=== PATIENT | female | born 1985 | race Caucasian/White ===

== ENCOUNTER 2018-11-30 09:24 | Emergency (ER) | payer BC ==
--- OUTSIDE RECORDS SUMMARY | 2018-11-30 09:28 | XMS REPORT ---
:1985 [facility] Address [address] [place] [address] Dr. Rockwell [address] [place] [address] Care Team Providers Name Role Phone HOUSTON SHAH Unavailable Unavailable Problems This patient has no known problems. Allergies, Adverse Reactions, Alerts This patient has no known allergies or adverse reactions. Medications This patient has no known medications. Results Test Description Test Time Test Comments Text Results Atomic Results Result Comments TISSUE EXAM 2018-02-23 07:48:00 Surgical Pathology Report Case: [id number] Authorizing Provider: [place] Shah MD Collected: 02/21/2018 1038 Ordering Location: [facility] ENDOSCOPY Received: 02/21/2018 1509 SERVICES Pathologist: Mirna Michael MD Specimens: A) - Ileum, Terminal B) - Colon Biopsy, Random A. TERMINAL ILEUM, BIOPSY: - ILEAL MUCOSA WITH PRESERVED VILLOUS ARCHITECTURE. NO SIGNIFICANT HISTOPATHOLOGICAL CHANGE B. 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 - [id number] and diarrhea A. Terminal ileum biopsy. B. Random colon biopsy Specimen is received in two containers of formalin both labeled with the patient's information.Specimen A: Labeled "terminal ileum biopsy" consists of two fragments of briones tissue measuring 0.1 and 0.4 cm, submitted in A1.Specimen B: Labeled "random colon biopsy" consists of multiple fragments of briones tissue ranging from 0.1 to 0.5 cm, submitted in B1. CG/ew Performed
--- OUTSIDE RECORDS SUMMARY | 2018-11-30 09:28 | XMS REPORT | Clinical Summary ---
:1985 Author Organization [facility] Address [address] [place] [address] Care Team Providers Name Role Phone Devante Copeland DO Primary Care Provider Allergies No Known Allergies Medications No known medications Active Problems Not on file Encounters Date Type Specialty Care Team Description 02/21/2018 Anesthesia Event Silvia Perez MD 02/21/2018 Surgery [place] Altamirano COLONOSCOPY,BIOPSY MD Stephon 02/21/2018 Hospital Encounter [place] Altamirano MD 02/17/2018 Hospital Encounter Pre-Admission Resource, Oqmt Testing Preadmit Phone after 11/29/2017 Social History Tobacco Use Types Packs/Day Years Used Date Never Smoker Smokeless Tobacco: Never Used Alcohol Use Drinks/Week oz/Week Comments Yes 4 Glasses of wine 2.4 Sex Assigned at Date Recorded Not on file Job Start Date Occupation Industry Not on file Not on file Not on file Travel History Travel Start Travel End No recent travel history available. Last Filed Vital Signs Vital Sign Reading Time Taken Blood Pressure 111/60 02/21/2018 11:20 AM CDT Pulse 45 02/21/2018 11:20 AM CDT Temperature 36.6 C (97.8 F) 02/21/2018 10:50 AM CDT Respiratory Rate 15 02/21/2018 11:20 AM CDT Oxygen Saturation 100% 02/21/2018 11:00 AM CDT Inhaled Oxygen Concentration - - Weight 54 kg (119 lb) 02/21/2018 10:17 AM CDT Height 162.6 cm (5' 4") 02/21/2018 10:17 AM CDT Body Mass Index 20.43 02/21/2018 10:17 AM CDT Plan of Treatment Not on file Procedures Procedure Name Priority Date/Time Associated Diagnosis Comments REPORT OF 02/21/2018 10:47 PROCEDURE - AM CDT ENDOSCOPY URL TISSUE EXAM AP Routine 02/21/2018 10:38 Results for this AM CDT procedure are in the results section. COLONOSCOPY,BIOPSY 02/21/2018 10:30 Constipation, AM CDT unspecified constipation type Diarrhea, unspecified type Hematochezia POCT , Routine 02/21/2018 10:15 Results for this URINE AM CDT procedure are in the results section. after 11/29/2017 Results REPORT OF PROCEDURE - ENDOSCOPY URL (02/21/2018 10:47 AM CDT) Narrative Performed At Tissue Exam (02/21/2018 10:38 AM CDT) Case Report Surgical Pathology Report Case: [id number] [facility] Authorizing Provider:[place] Altamirano MD Collected: 02/21/2018 1038 [facility] Ordering Location: [facility] ENDOSCOPY Received: 02/21/2018 1509 SERVICES Pathologist: Mirna Michael MD Specimens: A) - Ileum, Terminal B) - Colon Biopsy, Random DIAGNOSIS A. TERMINAL ILEUM, BIOPSY: [facility] - ILEAL MUCOSA WITH PRESERVED VILLOUS ARCHITECTURE. NO SIGNIFICANT HISTOPATHOLOGICAL [facility] CHANGE B. 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 - [facility] CPT Code(s) 33219 x2 [facility] CLINICAL HISTORY Constipation and diarrhea [facility] SPECIMEN SOURCE A. Terminal ileum biopsy. B. [facility] Random colon biopsy [facility] GROSS DESCRIPTION Specimen is received in two containers of formalin both labeled with the patient's information. [facility] Specimen A: Labeled "terminal ileum biopsy" consists of two fragments of briones tissue measuring 0.1 and 0.4 cm, submitted in A1. Specimen B: Labeled "random colon biopsy" consists of multiple fragments of briones tissue ranging from 0.1 to 0.5 cm, submitted in B1. CG/ew MICROSCOPIC DESCRIPTION Performed [facility] Specimen Tissue - Ileum, Terminal Performing Organization Address City/State/Zipcode Phone Number [facility] [address] [place] [address] CENTER POCT , urine (02/21/2018 10:15 AM CDT) Test Urine, POC Negative Control line present?, POC Yes Background clear?, POC Yes UPT Cassette Lot #, POC [id number] UPT Cassette Expiration Date, POC 08/03/2019 Specimen Urine after 11/29/2017 Insurance Payer Benefit Plan / Subscriber ID Type Phone Address Group BLUE CROSS/BLUE BCBS PPO POS EPO xxxxxxxxxxxx PPO [phone] [address] [place] [address]
[2018-11-30 10:34] LABS: Urine Blood 1+ (NEG); Urine Glucose NEGATIVE (NEG); Urine Protein NEGATIVE (NEG)
[2018-11-30] MEDS ORDERED: NA CHLORIDE 0.9% 1,000 ML ONE (10:38)
[2018-11-30] MEDS ORDERED: FAMOTIDINE 20 MG/2 ML VIAL IV ONE (10:38)
[2018-11-30 11:12] LABS: ALT/SGPT 17 U/L (12-78); AST/SGOT 24 U/L (15-37); Albumin 3.7 g/dL (3.4-5.0); Alkaline Phosphatase 81 U/L (45-117); BUN Blood Urea Nitrogen 10 mg/dL (7-18); Bicarbonate 25 mmol/L (21-32); Bilirubin Direct < 0.1 mg/dL (0-0.2); Bilirubin Total 0.3 mg/dL (0.2-1.0); Glucose Level 90 mg/dL (74-106); Lipase 92 U/L (73-393); Potassium 4.6 mmol/L (3.5-5.1); Protein, Total 7.8 g/dL (6.4-8.2); Sodium Level 139 mmol/L (136-145)
[2018-11-30 11:36] LABS: Absolute Lymphocytes (CBC) 1.3 K/uL (0.7-4.9); Absolute Monocytes 0.5 K/uL (0.1-1.3); Absolute Neutrophil 6.7 K/uL (1.8-8.0); Basophils % 0.5 % (0-1.3); Eosinophils % 0.2 % (0-4.4); Hematocrit 36.4 % (36.0-45.0); Lymphocytes % 15.2 % (15.3-44.8); MPV 9.6 fL (7.6-11.3); Monocytes % 5.7 % (3.3-12.3); RBC Red Blood Cell Count 3.72 M/uL (3.86-4.86)
--- NOTE | 2018-11-30 11:54 | RAD REPORT ---
EXAM DESCRIPTION: CT - Abdomen Pelvis W Contrast - 11/30/2018 11:39 am CLINICAL HISTORY: Abdominal pain/diarrhea COMPARISON: none. TECHNIQUE: Computed axial tomography of the abdomen pelvis was obtained. 100 cc Isovue-300 was admin istered intravenously. Oral contrast was not requested which limits evaluation of bowel. All CT scans are performed using dose optimization technique as appropriate and may include automated exposure control or mA/KV adjustment according to patient size. FINDINGS: The liver, spleen, pancreas, adrenal and kidneys appear unremarkable. There is no evidence of diverticulitis. A moderate amount stool is present throughout the colon. The appendix is not clearly seen. An adnexal mass is not displayed IMPRESSION: Moderate amount of stool throughout the colon
--- NOTE | 2018-11-30 12:56 | EDPHYS ---
Physician Documentation [facility] Name: Doni Ramires Age: 33 yrs Sex: Female : 1985 Arrival Date: 11/30/2018 Time: 09:28 Bed 20 Private MD: Min [facility] ED Physician Brandon Hahn HPI: 11/30 10:23 This 33 yrs old Female presents to ER via Ambulatory with complaints of kdr Fainting, Abdominal Pain. 10:23 The patient has been feeling poorly for the past week or so with nausea, abdominal pain kdr and cramping, looser than usual stools which are dark but not bloody or tar like.. Onset: The symptoms/episode began/occurred gradually, 1 week(s) ago. Severity of symptoms: At their worst the symptoms were mild moderate today, in the emergency department the symptoms are unchanged. The patient has experienced similar episodes in the past, a few times. The patient has not recently seen a physician. The patient had a nine day hospitalization in [place] several years ago for similar presentations though at this time she is not having bloody stools then. GOLD MARKER: 13:22 LMP N/A - . tw2 Historical: - Allergies: 09:46 No Known Allergies; ss - PMHx: 09:46 "GI issues"; ss - PSHx: 09:46 knee repair; ss - Immunization history:: Adult Immunizations up to date. - Social history:: Smoking status: Patient/guardian denies using tobacco. - Ebola Screening: : Patient denies travel to an Ebola-affected area in the 21 days before illness onset. ROS: 10:23 Constitutional: Negative for fever, chills, and weight loss, Eyes: Negative for injury, kdr pain, redness, and discharge, Neck: Negative for injury, pain, and swelling, Cardiovascular: Negative for chest pain, palpitations, and edema, Respiratory: Negative for shortness of breath, cough, wheezing, and pleuritic chest pain, Back: Negative for injury and pain, : Negative for injury, bleeding, discharge, and swelling, MS/Extremity: Negative for injury and deformity, Skin: Negative for injury, rash, and discoloration, Neuro: Negative for headache, weakness, numbness, tingling, and seizure activity. Psych: Negative for depression, anxiety, suicide ideation, homicidal ideation, and hallucinations, Allergy/Immunology: Negative for hives, rash, and allergies, Endocrine: Negative for neck swelling, polydipsia, polyuria, polyphagia, and marked weight changes, Hematologic/Lymphatic: Negative for swollen nodes, abnormal bleeding, and unusual bruising. 10:23 Abdomen/GI: Positive for abdominal pain, nausea, diarrhea, abdominal cramps, Negative for vomiting, constipation, abdominal distension, black/tarry stool, rectal pain, rectal bleeding, bowel incontinence. Exam: 10:23 Constitutional: This is a well developed, well nourished patient who is awake, alert, kdr and in no acute distress. Head/Face: Normocephalic, atraumatic. Eyes: Pupils equal round and reactive to light, extra-ocular motions intact. Lids and lashes normal. Conjunctiva and sclera are non-icteric and not injected. Cornea within normal limits. Periorbital areas with no swelling, redness, or edema. Neck: Trachea midline, no thyromegaly or masses palpated, and no cervical lymphadenopathy. Supple, full range of motion without nuchal rigidity, or vertebral point tenderness. No Meningismus. Chest/axilla: Normal chest wall appearance and motion. Nontender with no deformity. No lesions are appreciated. Cardiovascular: Regular rate and rhythm with a normal S1 and S2. No gallops, murmurs, or rubs. Normal PMI, no JVD. No pulse deficits. Respiratory: Lungs have equal breath sounds bilaterally, clear to auscultation and percussion. No rales, rhonchi or wheezes noted. No increased work of breathing, no retractions or nasal flaring. Back: No spinal tenderness. No costovertebral tenderness. Full range of motion. Skin: Warm, dry with normal turgor. Normal color with no rashes, no lesions, and no evidence of cellulitis. MS/ Extremity: Pulses equal, no cyanosis. Neurovascular intact. Full, normal range of motion. Neuro: Awake and alert, GCS 15, oriented to person, place, time, and situation. Cranial nerves II-XII grossly intact. Motor strength 5/5 in all extremities. Sensory grossly intact. Cerebellar exam normal. Normal gait. Psych: Awake, alert, with orientation to person, place and time. Behavior, mood, and affect are within normal limits. 10:23 Abdomen/GI: Inspection: abdomen appears normal, Bowel sounds: active, all quadrants, Palpation: soft, mild abdominal tenderness, in the left upper quadrant and left lower quadrant, mass, is not appreciated, rebound tenderness, is not appreciated, voluntary guarding, is not appreciated, involuntary guarding, is not appreciated. Vital Signs: 09:46 Resp 15; Weight 54.43 kg; Height 5 ft. 4 in. (162.56 cm); Pain 4/10; ss 09:48 Temp 97.3(TE); ss 09:59 BP 114 / 67; Pulse 62; Pulse Ox 100% on R/A; tw2 10:38 BP 105 / 64 Supine; Pulse 56; tw2 10:38 BP 116 / 68 Sitting; Pulse 56; tw2 10:38 BP 112 / 77 Standing; Pulse 69; tw2 10:59 BP 112 / 79; Pulse 57; Resp 18; Temp 97.8(TE); Pulse Ox 99% on R/A; mh5 11:56 BP 113 / 62; Pulse 58; Resp 17; Pulse Ox 100% on R/A; tw2 13:20 BP 101 / 61; Pulse 56; Resp 17; Pulse Ox 100% ; tw2 09:46 Body Mass Index 20.60 (54.43 kg, 162.56 cm) ss MDM: 10:23 Data reviewed: vital signs, nurses notes. Counseling: I had a detailed discussion with kdr the patient and/or guardian regarding: the historical points, exam findings, and any diagnostic results supporting the discharge/admit diagnosis, lab results, radiology results. 12:55 Patient medically screened. [facility] 11/30 09:54 Order name: Urine Dipstick--Ancillary (enter results); Complete Time: 11:18 [facility] 11/30 09:54 Order name: Urine --Ancillary (enter results) [facility] 11/30 09:54 Order name: Urine --Ancillary; Complete Time: 11:18 [facility] 11/30 10:20 Order name: Basic Metabolic Panel; Complete Time: 11:18 [facility] 11/30 10:20 Order name: CBC with Diff; Complete Time: 11:52 [facility] 11/30 10:20 Order name: Creatinine for Radiology; Complete Time: 11:18 [facility] 11/30 09:54 Order name: Urine Dipstick-Ancillary (obtain specimen); Complete Time: 09:54 [facility] 11/30 09:54 Order name: Urine Test (obtain specimen); Complete Time: 09:54 [facility] 11/30 10:20 Order name: Hepatic Function; Complete Time: 11:18 [facility] 11/30 10:20 Order name: Lipase; Complete Time: 11:18 [facility] 11/30 10:20 Order name: IV Saline Lock; Complete Time: 10:41 [facility] 11/30 10:22 Order name: CT Abd/Pelvis - W/Contrast; Complete Time: 12:40 [facility] 11/30 10:20 Order name: Labs collected and sent; Complete Time: 10: [facility] 11/30 10:20 Order name: Orthostatic Blood Pressure; Complete Time: 11:22 [facility] Administered Medications: 10:44 Drug: NS 0.9% 1000 ml Route: IV; Rate: 1 bolus; Site: right antecubital; tw2 13:00 Follow up: Response: No adverse reaction; IV Status: Completed infusion; IV Intake: tw2 1000ml 10:46 Drug: Pepcid 20 mg Route: IVP; Site: right antecubital; tw2 11:23 Follow up: Response: No adverse reaction tw2 Disposition: 11/30/18 12:55 Discharged to Home. Impression: Abdominal and pelvic pain, Constipation, Dizziness and giddiness, Syncope and collapse. - Condition is Stable. - Discharge Instructions: Dizziness, Near-Syncope, Constipation, Adult, [id number], Abdominal Pain, Adult, [id number]. - Prescriptions for Miralax 17 gram/dose Oral - take 1 packet by ORAL route once daily dilute powder in 8 ounces of water or juice; 20 packet. - Medication Reconciliation Form, Thank You Letter, Antibiotic Education, Prescription Opioid Use, Work release form form. - Follow up: Devante Copeland, ; When: 2 - 3 days; Reason: If symptoms return, Further diagnostic work-up, Recheck today's complaints, Continuance of care, Re-evaluation by your physician. - Problem is an ongoing problem. - Symptoms are unchanged. - Notes: Keep well hydrated. Return for any recurrence worsening of your symptoms. Signatures: Dispatcher [employer] EDMS Brandon Hahn MD MD kdr Trevin Faria em1 Cecily Richter RN RN Rufina St RN RN tw2 Corrections: (The following items were deleted from the chart) 09:46 09:41 Social history: Smoking status: [facility] :46 09:41 Immunization history: Adult Immunizations [facility] 13:23 12:55 11/30/2018 12:55 Discharged to Home. Impression: Abdominal and pelvic pain; tw2 Constipation; Dizziness and giddiness; Syncope and collapse. Condition is Stable. Forms are Work release form, Medication Reconciliation Form, Thank You Letter, Antibiotic Education, Prescription Opioid Use. Follow up: Devante Copeland; When: 2 - 3 days; Reason: If symptoms return, Further diagnostic work-up, Recheck today's complaints, Continuance of care, Re-evaluation by your physician. Problem is an ongoing problem. Symptoms are unchanged. kdr
--- NOTE | 2018-11-30 12:56 | ER ---
Nurse's Notes [facility] Name: Doni Ramires Age: 33 yrs Sex: Female : 1985 Arrival Date: 11/30/2018 Time: 09:28 Bed 20 Private MD: Devante Copeland Diagnosis: Abdominal and pelvic pain;Constipation;Dizziness and giddiness;Syncope and collapse Presentation: 11/30 09:42 Presenting complaint: Patient states: "I have a lot of GI issues, and I've had some ss diarrhea and I fainted once, Wednesday, and again twice today. Last time I had to be admitted because I had mucous and blood in my stool. This time I was waiting for the blood, but I called my doctor and they said to come here probably because I'm fainting and I'm clammy.". Transition of care: patient was not received from another setting of care. Onset of symptoms was November 28, 2018. Risk Assessment: Do you want to hurt yourself or someone else? Patient reports no desire to harm self or others. Care prior to arrival: None. 09:42 Method Of Arrival: Ambulatory ss 09:42 Acuity: LADONNA 3 ss 09:59 Initial Sepsis Screen: Does the patient meet any 2 criteria? No. Patient's initial tw2 sepsis screen is negative. Does the patient have a suspected source of infection? No. Patient's initial sepsis screen is negative. Triage Assessment: 13:21 General: Behavior is. tw2 HEAD MECHANIC: 13:22 LMP N/A - . tw2 Historical: - Allergies: 09:46 No Known Allergies; ss - PMHx: 09:46 "GI issues"; ss - PSHx: 09:46 knee repair; ss - Immunization history:: Adult Immunizations up to date. - Social history:: Smoking status: Patient/guardian denies using tobacco. - Ebola Screening: : Patient denies travel to an Ebola-affected area in the 21 days before illness onset. Screenin:40 Abuse screen: Denies threats or abuse. Nutritional screening: No deficits noted. tw2 Tuberculosis screening: No symptoms or risk factors identified. Fall Risk None identified. Assessment: 09:45 General: Appears in no apparent distress. slender. Pain: Complains of pain in left tw2 lower quadrant and left upper quadrant. Neuro: Level of Consciousness is awake, alert, obeys commands, Oriented to person, place, time, situation. Cardiovascular: Heart tones S1 S2 Patient's skin is warm and dry. Respiratory: Airway is patent Respiratory effort is even, unlabored, Respiratory pattern is regular, symmetrical, Breath sounds are clear bilaterally. GI: Abdomen is flat, non-distended, Bowel sounds present X 4 quads. Abd is soft X 4 quads. GI: Reports lower abdominal pain, upper abdominal pain, "and when the pain hits i feel faint". : No signs and/or symptoms were reported regarding the genitourinary system. EENT: No signs and/or symptoms were reported regarding the EENT system. Derm: No signs and/or symptoms reported regarding the dermatologic system. Musculoskeletal: No signs and/or symptoms reported regarding the musculoskeletal system. 10:45 Reassessment: Patient appears in no apparent distress at this time. No changes from tw2 previously documented assessment. Patient and/or family updated on plan of care and expected duration. Pain level reassessed. Patient is alert, oriented x 3, equal unlabored respirations, skin warm/dry/pink. 11:57 Reassessment: Patient appears in no apparent distress at this time. No changes from tw2 previously documented assessment. Patient and/or family updated on plan of care and expected duration. Pain level reassessed. Patient is alert, oriented x 3, equal unlabored respirations, skin warm/dry/pink. Vital Signs: 09:46 Resp 15; Weight 54.43 kg; Height 5 ft. 4 in. (162.56 cm); Pain 4/10; ss 09:48 Temp 97.3(TE); ss 09:59 BP 114 / 67; Pulse 62; Pulse Ox 100% on R/A; tw2 10:38 BP 105 / 64 Supine; Pulse 56; tw2 10:38 BP 116 / 68 Sitting; Pulse 56; tw2 10:38 BP 112 / 77 Standing; Pulse 69; tw2 10:59 BP 112 / 79; Pulse 57; Resp 18; Temp 97.8(TE); Pulse Ox 99% on R/A; mh5 11:56 BP 113 / 62; Pulse 58; Resp 17; Pulse Ox 100% on R/A; tw2 13:20 BP 101 / 61; Pulse 56; Resp 17; Pulse Ox 100% ; tw2 09:46 Body Mass Index 20.60 (54.43 kg, 162.56 cm) ED Course: 09:28 Patient arrived in ED. mr 09:29 Devante Copeland DO is Private Physician. mr 09:33 Brandon Hahn MD is Attending Physician. kdr 09:[address] RN is Primary Nurse. tw2 09:40 Arm band placed on. tw2 09:41 Placed in gown. Bed in low position. Pulse ox on. NIBP on. tw2 09:46 Triage completed. 09:52 Urine collected: clean catch specimen, clear. 5 09:53 Call light in reach. Warm blanket given. 5 09:57 Urine --Ancillary Sent. 5 09:57 Urine --Ancillary (enter results) Sent. 5 09:57 Urine Dipstick--Ancillary (enter results) Sent. 5 10:38 Initial lab(s) drawn, by pa, sent to lab. Inserted saline lock: 22 gauge in right [facility] antecubital area, using aseptic technique. Blood collected. 10:40 Basic Metabolic Panel Sent. 5 10:40 CBC with Diff Sent. 5 10:40 Creatinine for Radiology Sent. 5 10:40 Hepatic Function Sent. 5 10:41 Lipase Sent. 5 11:06 Radiology exam delayed due to lab results not completed at this time. (BUN/Creatinine). vr 11:38 CT completed. Patient tolerated procedure well. Patient moved to CT via wheelchair. vr Patient moved back from CT. 11:39 CT Abd/Pelvis - W/Contrast In Process Unspecified. EDMS 12:50 Devante Copeland DO is Referral Physician. kdr 13:21 No provider procedures requiring assistance completed. IV discontinued, intact, tw2 bleeding controlled, No redness/swelling at site. Pressure dressing applied. Administered Medications: 10:44 Drug: NS 0.9% 1000 ml Route: IV; Rate: 1 bolus; Site: right antecubital; tw2 13:00 Follow up: Response: No adverse reaction; IV Status: Completed infusion; IV Intake: tw2 1000ml 10:46 Drug: Pepcid 20 mg Route: IVP; Site: right antecubital; tw2 11:23 Follow up: Response: No adverse reaction tw2 Intake: 13:00 IV: 1000ml; Total: 1000ml. tw2 Outcome: 12:55 Discharge ordered by . kdr 13:21 Discharged to home ambulatory, with significant other. tw2 13:21 Condition: stable 13:21 Discharge instructions given to patient, significant other, Instructed on discharge instructions, follow up and referral plans. medication usage, Demonstrated understanding of instructions, follow-up care, medications, Prescriptions given X 1. 13:23 Patient left the ED. tw2 Signatures: Dispatcher [employer] EDMS Brandon Hahn MD MD kdr Rivera, Mary mr Smirch, Shelby, RN RN Kathie Saavedra Tara, RN RN 2 Viviana Faria [facility] Corrections: (The following items were deleted from the chart) 09:41 Social history: Smoking status: 09:41 Immunization history: Adult Immunizations
== END 2018-11-30 13:23 | disposition home or self-care (01) ==
LOC: ER 09:24
DX: R55 Syncope and collapse (principal); K59.00 Constipation, unspecified; R10.9 Unspecified abdominal pain; R11.0 Nausea; R42 Dizziness and giddiness
CPT/HCPCS: 36415; 74177; 80048; 80076; 81003; 81025; 83690; 85025; 96361; 96374; 99284; J7030; Q9967

== ENCOUNTER 2021-01-07 08:26 | Emergency (ER) | payer BC ==
--- OUTSIDE RECORDS SUMMARY | 2021-01-07 08:29 | XMS REPORT | Continuity of Care Document ---
:1985 Author Organization [facility] t Address [address] [place] [address] Care Team Providers Name Role Phone Jasen Copeland DO Primary Care Physician Stephon ALTAMIRANO Attending Clinician Unavailable Stephon ALTAMIRANO Admitting Clinician Unavailable Payers Payer Name Policy Type Policy Number Effective Date Expiration Date S ource Problems Condition Condition Condition Status Onset Resolution Last Treating Co mments Source Name Details Category Date Date Treatment Clinician Date Left upper Problem Active 2020-08-23 M emoria quadrant 03:04:55 l pain Left [place] upper quadrant pain Active Problem 08/23/2020 [facility] Left lower Problem Active 2020-08-23 M emoria quadrant 03:04:55 l pain Left [place] lower quadrant pain Active Problem 08/23/2020 [facility] Diarrhea Problem Active 2020-08-23 Mem [facility]ria 03:04:55 l Diarrhea Jeffrey n Active Problem 08/23/2020 [facility] Atypical Problem Active 2020-08-23 [facility] syncope 03:04:55 l Atypical Jeffrey n syncope Active Problem 08/23/2020 [facility] 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 NRayo Active Info Not Kirill barrera Available 03-29 l 00:00: [place] 00 Social History Social Habit Start Date Stop Date Quantity Comments Source Sex Assigned At [facility] Tobacco use and 2018-02-21 2018-02-21 Never used [facility] exposure 00:00:00 [facility]:00:00 [facility] Alcohol intake 2018-02-21 2018-02-21 Current drinker [facility] - 00:00:00 00:00:00 [facility] alcohol [facility] (finding) Smoking Status Start Date Stop Date Source Never smoker [facility] Medications Ordered Filled Start Stop Current Ordering Indication Dosage Frequency Signature Comments Components Source Medication Medication Date Date Medication? Clinician (SIG) Name Name VSL#3 Yes Bigg HART 4 cap(s) Kirill barrera 03-31 SUN l 02:01: Juan Alberto 21 MiraLax Yes Bigg HART as Memori a 03-31 SUN directed l 02:01: Juan Alberto 21 Sucraid Yes Bigg HART 2 mL Memori a 01-04 SUN l 00:00: [place] 00 Janumet XR Yes Bigg HART 1 tab(s) Memoria 12-20 SUN l 02:01: [place] 56 Vital Signs Vital Name Observation Time Observation Value Comments Source Systolic (mm Hg) 2019-03-29 20:30:00 Kirill rial [place] Weight 2019-03-29 20:30:00 [facility] [place] Height 2019-03-29 20:30:00 [facility] Juan Alberto Diastolic (mm Hg) 2019-03-29 20:30:00 Mem orial [place] Systolic (mm Hg) 2018-12-14 19:00:00 Kirill rial Juan Alberto Weight 2018-12-14 19:00:00 [facility] [place] Height 2018-12-14 19:00:00 [facility] [place] Diastolic (mm Hg) 2018-12-14 19:00:00 Mem orial Juan Alberto Procedures This patient has no known procedures. Plan of Care Planned Activity Planned Date Details Comments Source Future Scheduled 2020-10-[address] [facility] - Test 00:00:00 (12+) [code = Medical Center DEPRESSION SCREENING (12+)] Future Scheduled 2020-06-[address] [facility] - Test 00:00:00 (#1) [code = Medical Center INFLUENZA VACCINE (#1)] Future Scheduled [address] [facility] - Test 00:00:00 malignant neoplasm of [facility] cervix (procedure) [code = 844660175] Future Scheduled 2001 HEPATITIS C [facility]ING [facility] Test 00:00:00 [code = HEPATITIS C [facility] SCREENING] Future Scheduled 1990 DTAP/TDAP/TD VACCINES [facility] Test 00:00:00 (1 - Tdap) [code = Medical C enter DTAP/TDAP/TD VACCINES (1 - Tdap)] Encounters Start End Encounter Admission Attending Care Care Encounter Source Date/Time Date/Time Type Type Clinicians Facility Department ID 2020-08-22 2020-08-22 Outpatient [facility] [id number] Memoria 17:27:00 [facility]:27:[facility] s 2019-03-29 2019-03-29 Outpatient [facility]estive Digestive [id number] Memoria 15:30:00 15:30:00 [facility] Her quinteros s 2019-01-16 2019-01-16 Outpatient DIGESTIVE DIGESTIVE [id number] Memoria 12:29:00 12:29:00 [facility] Her quinteros S 2018-12-30 2018-12-30 Outpatient DIGESTIVE DIGESTIVE [id number] Memoria 09:00:00 09:00:00 [facility] Her quinteros S 2018-12-14 2018-12-14 Outpatient DIGESTIVE DIGESTIVE [id number] Memoria 15:17:00 15:17:00 [facility] Her quinteros S 2018-12-14 2018-12-14 Outpatient DIGESTIVE DIGESTIVE [id number] Memoria 14:00:00 14:00:00 [facility] Her quinteros S Results Test Description Test Time Test Comments Results Result [facility] e Comments TISSUE EXAM 2018-02-23 Surgical Pathology 07:48:00 Report Case: [id number] Authorizing Provider: Houston Altamirano MD Collected: 02/21/2018 1038 Ordering Location: [facility] ENDOSCOPY Received: 02/21/2018 1509 SERVICES Pathologist: Mirna Michael MD Specimens: A) - Ileum, Terminal B) - Colon Biopsy, Random A. TERMINAL ILEUM, BIOPSY: - ILEAL MUCOSA WITH PRESERVED VILLOUS ARCHITECTURE. NO SIGNIFICANT HISTOPATHOLOGICAL CHANGE B. 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 - 75488 l4Csxthwedylcl and diarrhea A. Terminal ileum biopsy. B. [...] 0.5 cm, submitted in B1. CG/ew Performed - US PREG AFTER 2012-11-21 00:00:00 [facility] 1985 Sex: F Patient Name: IRWIN GRIGSBY Unit No: [id number] EXAMS: CPT CODE: [id number] US PREG AFTER 35976 [id number] US FET BIO PH CA W/O NST 12179 [id number] DOP VELOCITY UMBILCL ART 83569 [facility] [address], [place] [address] OBSTETRICAL ULTRASOUND REPORT --------- - Pat. Name: IRWIN GRIGSBY Study Date: 11/18/2012 10:32am Pat. No: [id number] Referring MD: Ani Calabrese M.D LMP: Unknown Paper Hanger: Gill Stoll RDMS GA by LMP: , Age: 02 1985, 26 GA by 1st: 30.3 weeks GA Selected: 30.3 weeks (From Known E) GA by US: 30.1 weeks RAÚL: 01/25/2013 Hist/Ind: Growth Scan 2 --------- - MEASUREMENTS AGE GROWTH EVALUATION Measurement GA Range Source % for 30.3 Ratios ------- ------- ----- BPD 7.5 cm 30.4 wk (27.4-33.4) Hadlock BPD 51% FL/BPD 0.77 (0.71 - 0.87) HC 28.3 cm 30.8 wk (27.8-33.8) Hadlock HC 57% FL/AC 0.22 (0.20 - 0.24) AC 26.1 cm 30.2 wk (27.2-33.2) Hadlock AC 49% HC/AC 1.09 (0.97 - 1.16) FL 5.8 cm 30.0 wk (27.1-33.0) Hadlock FL 46% CI 0.77 (0.70 - 0.86) HL 5.3 cm 30.9 wk (28.2-33.6) Kaveh HL 60% GA for sonogram 30.1 wk (27.7-32.6) Weight Estimate: based on (BPD,HC,AC,FL) Hadlock Weight: 1553 gm (1646-8054) Hadlock : 3lbs, 6oz Normal: 1509 gm (3325-7039) Luisa Wt% 53% for 30.3 wks Amniotic Fluid Index: 15.4 (09.0-23.4) Q1: 3.9 Q2: 4.1 Q3: 3.1 Q4: 4.3 Biophysical Profile: 05/11 Breathin Tone: 2 Movement: 2 AFV: 2 --------- - CLINICAL SUMMARY Type of Gestation: Craig Intrauterine in vertex presentation. size is appropriate for gestational age by weight. growth: Consistent with normal growth motion and organs seen: heart motion seen somatic activity observed body and limb movements seen Four chamber heart observed Left ventricular outflow tract (LVOT) seen Right ventricular outflow tract (RVOT) seen Regular cardiac rhythm observed Normal intracranial anatomy seen Umbilical cord insertion in fetus seen [facility] [place] NAME: IRWIN GRIGSBY Radiology Department PHYS: [facility] Ani Calabrese [address] : 1985 AGE: 26 SEX: F [place], [place] [address] LOC: UNK PHONE #: [phone] EXAM DATE: 11/18/2012 STATUS: DEP CLI FAX #: [phone] RAD NO: Page 1 Signed Report (CONTINUED) Patient Name: IRWIN GRIGSBY Unit No: [id number] EXAMS: CPT CODE: [id number] US PREG AFTER 1ST TRI 89605 [id number] US FET BIO PH CA W/O NST 94813 [id number] DOP VELOCITY UMBILCL ART 96169 <Continued> stomach, Renal Fossa, Bladder and Spine seen Three vessel umbilical cord noted abnormalities observed: THE RENAL PELVES MEASURES 6MM BILATERALLY. NO SIGNIFICANT INTRARENAL FLUID IS NOTED. Placental location: Posterior Placental maturity : Grade 2 There is no evidence of placenta previa. Amniotic fluid volume is normal. Uterus and adnexa: No significant abnormalities seen Umbilical artery doppler S/D ratio is NORMAL. THE FINDINGS WITHIN THE KIDNEYS MAY REPRESENT EXTRARENAL PELVVES ( A VARIANT OF NORMAL) BUT I DO RECOMMEND REPEAT EXAM TO CHECK THE KIDNEYS AT 35-36 WEEKS. Thank you for allowing us to participate in the care of this patient. Pearl Askew M.D. " Manually signed by Jelena Askew MD Reported and signed by: Jelena Askew MD CC: Ani Calabrese MD Technologist: Gill Stoll RDMS Probe: Trnscrbd D/ (3881) F.RAD.KXR Advanced To Signed Dt/Tm/User: 11/21/12 (4863) F.RAD.KXR The NAME: IRWIN GRIGSBY Radiology Department PHYS: [facility] Ani Calabrese [address] : 1985 AGE: 26 SEX: [place] [address] LOC: UNK PHONE #: [phone] EXAM DATE: 11/18/2012 STATUS: DEP CLI FAX #: [phone] RAD NO: Page 2 Signed Report Patient Name: IRWIN GRIGSBY Unit No: [id number] EXAMS: CPT CODE: [id number] US PREG AFTER 1ST TRI 36552 [id number] US FET BIO PH CA W/O NST 59205 [id number] DOP VELOCITY UMBILCL ART 89258 <Continued> The NAME: IRWIN GRIGSBY Radiology Department PHYS: [facility] Ani Calabrese [address] : 1985 AGE: 26 SEX: [place] [address] LOC: UNK PHONE #: [phone] EXAM DATE: 11/18/2012 STATUS: DEP CLI FAX #: [phone] RAD NO: Page 3 Signed Report - US FET BIO PH CA 2012-11-21 W/O NST 00:00:00 [facility] : 1985 Sex: F Patient Name: IRWIN GRIGSBY Unit No: [id number] EXAMS: CPT CODE: [id number] US PREG AFTER 1ST TRI 62975 [id number] US FET BIO PH CA W/O NST 27015 [id number] DOP VELOCITY UMBILCL ART 99418 [facility] [address], [place] [address] OBSTETRICAL ULTRASOUND REPORT --------- - Pat. Name: IRWIN GRIGSBY Study Date: 11/18/2012 10:32am Pat. No: [id number] Referring MD: Ani Calabrese M.D LMP: Unknown Paper Hanger: Gill Stoll RDMS GA by LMP: , Age: 02 1985, 26 GA by 1st: 30.3 weeks GA Selected: 30.3 weeks (From Known E) GA by US: 30.1 weeks RAÚL: 01/25/2013 Hist/Ind: Growth Scan 2 --------- - MEASUREMENTS AGE GROWTH EVALUATION Measurement GA Range Source % for 30.3 Ratios ------- ------- ----- BPD 7.5 cm 30.4 wk (27.4-33.4) Hadlock BPD 51% FL/BPD 0.77 (0.71 - 0.87) HC 28.3 cm 30.8 wk (27.8-33.8) Hadlock HC 57% FL/AC 0.22 (0.20 - 0.24) AC 26.1 cm 30.2 wk (27.2-33.2) Hadlock AC 49% HC/AC 1.09 (0.97 - 1.16) FL 5.8 cm 30.0 wk (27.1-33.0) Hadlock FL 46% CI 0.77 (0.70 - 0.86) HL 5.3 cm 30.9 wk (28.2-33.6) Kaveh HL 60% GA for sonogram 30.1 wk (27.7-32.6) Weight Estimate: based on (BPD,HC,AC,FL) Hadlock Weight: 1553 gm (5302-9263) Hadlock : 3lbs, 6oz Normal: 1509 gm (7484-7839) Luisa Wt% 53% for 30.3 wks Amniotic Fluid Index: 15.4 (09.0-23.4) Q1: 3.9 Q2: 4.1 Q3: 3.1 Q4: 4.3 Biophysical Profile: 05/11 Breathin Tone: 2 Movement: 2 AFV: 2 --------- - CLINICAL SUMMARY Type of Gestation: Craig Intrauterine in vertex presentation. size is appropriate for gestational age by weight. growth: Consistent with normal growth motion and organs seen: heart motion seen somatic activity observed body and limb movements seen Four chamber heart observed Left ventricular outflow tract (LVOT) seen Right ventricular outflow tract (RVOT) seen Regular cardiac rhythm observed Normal intracranial anatomy seen Umbilical cord insertion in fetus seen [facility] [place] NAME: IRWIN GRIGSBY Radiology Department PHYS: Ani Mendoza [address] : 1985 AGE: 26 SEX: F [place], [place] [address] LOC: UNK PHONE #: [phone] EXAM DATE: 11/18/2012 STATUS: DEP CLI FAX #: [phone] RAD NO: Page 1 Signed Report (CONTINUED) Patient Name: IRWIN GRIGSBY Unit No: [id number] EXAMS: CPT CODE: [id number] US PREG AFTER 1ST TRI 27776 [id number] US FET BIO PH CA W/O NST 57595 [id number] DOP VELOCITY UMBILCL ART 95969 <Continued> stomach, Renal Fossa, Bladder and Spine seen Three vessel umbilical cord noted abnormalities observed: THE RENAL PELVES MEASURES 6MM BILATERALLY. NO SIGNIFICANT INTRARENAL FLUID IS NOTED. Placental location: Posterior Placental maturity : Grade 2 There is no evidence of placenta previa. Amniotic fluid volume is normal. Uterus and adnexa: No significant abnormalities seen Umbilical artery doppler S/D ratio is NORMAL. THE FINDINGS WITHIN THE KIDNEYS MAY REPRESENT EXTRARENAL PELVVES ( A VARIANT OF NORMAL) BUT I DO RECOMMEND REPEAT EXAM TO CHECK THE KIDNEYS AT 35-36 WEEKS. Thank you for allowing us to participate in the care of this patient. Pearl Askew M.D. " Manually signed by Jelena Askew MD Reported and signed by: Jelena Askew MD CC: Ani Calabrese MD Technologist: Gill Stoll RDMS Probe: Trnscrbd D/ (5346) F.RAD.KXR Advanced To Signed Dt/Tm/User: 11/21/12 (7184) F.RAD.KXR The NAME: IRWIN GRIGSBY Radiology Department PHYS: [facility] Ani Calabrese [address] : 1985 AGE: 26 SEX: F [place] [address] LOC: UNK PHONE #: [phone] EXAM DATE: 11/18/2012 STATUS: DEP CLI FAX #: [phone] RAD NO: Page 2 Signed Report Patient Name: IRWIN GRIGSBY Unit No: [id number] EXAMS: CPT CODE: [id number] US PREG AFTER 1ST TRI 49499 [id number] US FET BIO PH CA W/O NST 67691 [phone] DOP VELOCITY UMBILCL ART 34394 <Continued> The NAME: IRWIN GRIGSBY Radiology Department PHYS: [facility] Ani Calabrese [address] : 1985 AGE: 26 SEX: F [place] [address] LOC: UNK PHONE #: [phone] EXAM DATE: 11/18/2012 STATUS: DEP CLI FAX #: [phone] RAD NO: Page 3 Signed Report - DOP VELOCITY 2012-11-21 UMBILCL ART 00:00:00 [facility] 1985 Sex: F Patient Name: IRWIN GRIGSBY Unit No: [id number] EXAMS: CPT CODE: [id number] US PREG AFTER 1ST TRI 76905 [id number] US FET BIO PH CA W/O NST 31117 [id number] DOP VELOCITY UMBILCL ART 23386 [facility] [address], [place] [address] OBSTETRICAL ULTRASOUND REPORT --------- - Pat. Name: IRWIN GRIGSBY Study Date: 11/18/2012 10:32am Pat. No: [id number] Referring MD: Ani Calabrese M.D LMP: Unknown Paper Hanger: Gill Stoll RDMS GA by LMP: , Age: 02 1985, 26 GA by 1st: 30.3 weeks GA Selected: 30.3 weeks (From Known E) GA by US: 30.1 weeks RAÚL: 01/25/2013 Hist/Ind: Growth Scan 2 --------- - MEASUREMENTS AGE GROWTH EVALUATION Measurement GA Range Source % for 30.3 Ratios ------- ------- ----- BPD 7.5 cm 30.4 wk (27.4-33.4) Hadlock BPD 51% FL/BPD 0.77 (0.71 - 0.87) HC 28.3 cm 30.8 wk (27.8-33.8) Hadlock HC 57% FL/AC 0.22 (0.20 - 0.24) AC 26.1 cm 30.2 wk (27.2-33.2) Hadlock AC 49% HC/AC 1.09 (0.97 - 1.16) FL 5.8 cm 30.0 wk (27.1-33.0) Hadlock FL 46% CI 0.77 (0.70 - 0.86) HL 5.3 cm 30.9 wk (28.2-33.6) Kaveh HL 60% GA for sonogram 30.1 wk (27.7-32.6) Weight Estimate: based on (BPD,HC,AC,FL) Hadlock Weight: 1553 gm (9192-2161) Hadlock : 3lbs, 6oz Normal: 1509 gm (5096-4009) Luisa Wt% 53% for 30.3 wks Amniotic Fluid Index: 15.4 (09.0-23.4) Q1: 3.9 Q2: 4.1 Q3: 3.1 Q4: 4.3 Biophysical Profile: 05/11 Breathin Tone: 2 Movement: 2 AFV: 2 --------- - CLINICAL SUMMARY Type of Gestation: Craig Intrauterine in vertex presentation. size is appropriate for gestational age by weight. growth: Consistent with normal growth motion and organs seen: heart motion seen somatic activity observed body and limb movements seen Four chamber heart observed Left ventricular outflow tract (LVOT) seen Right ventricular outflow tract (RVOT) seen Regular cardiac rhythm observed Normal intracranial anatomy seen Umbilical cord insertion in fetus seen [facility] [place] NAME: IRWIN GRIGSBY Radiology Department PHYS: [facility] Ani Calabrese [address] : 1985 AGE: 26 SEX: F [place], [place] [address] LOC: UNK PHONE #: [phone] EXAM DATE: 11/18/2012 STATUS: DEP CLI FAX #: [phone] RAD NO: Page 1 Signed Report (CONTINUED) Patient Name: IRWIN GRIGSBY Unit No: [id number] EXAMS: CPT CODE: [id number] US PREG AFTER 1ST TRI 98820 [id number] US FET BIO PH CA W/O NST 12887 [phone] DOP VELOCITY UMBILCL ART 48946 <Continued> stomach, Renal Fossa, Bladder and Spine seen Three vessel umbilical cord noted abnormalities observed: THE RENAL PELVES MEASURES 6MM BILATERALLY. NO SIGNIFICANT INTRARENAL FLUID IS NOTED. Placental location: Posterior Placental maturity : Grade 2 There is no evidence of placenta previa. Amniotic fluid volume is normal. Uterus and adnexa: No significant abnormalities seen Umbilical artery doppler S/D ratio is NORMAL. THE FINDINGS WITHIN THE KIDNEYS MAY REPRESENT EXTRARENAL PELVVES ( A VARIANT OF NORMAL) BUT I DO RECOMMEND REPEAT EXAM TO CHECK THE KIDNEYS AT 35-36 WEEKS. Thank you for allowing us to participate in the care of this patient. Pearl Askew M.D. " Manually signed by Jelena Askew MD Reported and signed by: Jelena Askew MD CC: Ani Calabrese MD Technologist: Gill Stoll RDMS Probe: Trnscrbd D/ (1343) F.RAD.KXR Advanced To Signed Dt/Tm/User: 11/21/12 (4374) F.RAD.KXR [facility] [place] NAME: IRWIN GRIGSBY Radiology Department PHYS: Ani Mendoza [address] : 1985 AGE: 26 SEX: F [place], [place] [address] LOC: UNK PHONE #: [phone] EXAM DATE: 11/18/2012 STATUS: DEP CLI FAX #: [phone] RAD NO: Page 2 Signed Report Patient Name: IRWIN GRIGSBY Unit No: [id number] EXAMS: CPT CODE: [id number] US PREG AFTER TRI 57073 [id number] US FET BIO PH CA W/O NST 05623 [id number] DOP VELOCITY UMBILCL ART 92770 <Continued> The NAME: IRWIN GRIGSBY Radiology Department PHYS: Ani Mendoza [address] : 1985 AGE: 26 SEX: F [place] [address] LOC: UNK PHONE #: [phone] EXAM DATE: 11/18/2012 STATUS: ZEUS CLI FAX #: [phone] RAD NO: Page 3 Signed Report - US PREG AFTER 2012-08-25 TRI 00:00:00 [facility] 1985 Sex: F Patient Name: IRWIN GRIGSBY Unit No: [id number] EXAMS: CPT CODE: [id number] US PREG AFTER TRI 23124 [facility] [address] [place], [place] [address] OBSTETRICAL ULTRASOUND REPORT - Pat. Name: IRWIN GRIGSBY Study Date: 08/22/2012 10:51am Pat. No: [id number] Referring MD: Ani Calabrese M.D LMP: Unknown Paper Hanger: Gill Stoll RDMS GA by LMP: , Age: 02 1985, 26 GA by 1st: GA Selected: 17.7 weeks (From Known E) GA by US: 18.0 weeks RAÚL: 01/25/2013 Hist/Ind: Anatomy Screening Scan 1 - MEASUREMENTS AGE GROWTH EVALUATION Measurement GA Range Source % for 17.7 Ratios ------- ------- ----- BPD 4.0 cm 18.0 wk (17.0-19.0) Hadlock BPD 63% FL/BPD 0.68 HC 15.0 cm 18.0 wk (16.4-19.6) Hadlock HC 58% FL/AC 0.21 AC 12.6 cm 17.8 wk (15.9-19.7) Hadlock AC 53% HC/AC 1.19 (1.08 - 1.27) FL 2.7 cm 17.9 wk (16.9-18.9) Hadlock FL 58% CI 0.79 (0.70 - 0.86) HL 2.6 cm 18.2 wk (15.5-20.9) Kaveh HL 59% GA for sonogram 18.0 wk (16.3-19.6) Weight Estimate: based on (HL,BPD,AC,FL) Avg Weight: 228 gm (195-261) Hadlock : 0lbs, 8oz - CLINICAL SUMMARY Type of Gestation: Craig Intrauterine in vertex presentation. size is appropriate for gestational age by weight. growth: Consistent with normal growth motion and organs seen: heart motion seen body and limb movements seen Four chamber heart observed Left ventricular outflow tract (LVOT) seen Right ventricular outflow tract (RVOT) seen Normal intracranial anatomy seen Umbilical cord insertion in fetus seen stomach, Renal Fossa, Bladder and Spine seen Three vessel umbilical cord noted abnormalities observed: None seen at this exam Placental location: [facility] [place] NAME: IRWIN GRIGSBY Radiology Department PHYS: Ani Mendoza [address] : 1985 AGE: 26 SEX: F [place], [place] [address] LOC: UNK PHONE #: [phone] EXAM DATE: 08/22/2012 STATUS: DEP CLI FAX #: [phone] RAD NO: Page 1 Signed Report (CONTINUED) Patient Name: IRWIN GRIGSBY Unit No: [id number] EXAMS: CPT CODE: [id number] US PREG AFTER 1ST TRI 84736 <Continued> Posterior Placental maturity : Grade 1 There is no evidence of placenta previa. Amniotic fluid volume is normal. Thank you for allowing us to participate in the care of this patient. Jasen Mares M.D. " Manually signed by Jasen Mares MD Reported and signed by: Jasen Mares MD CC: Ani Calabrese MD; Doc No Technologist: Gill Stoll RDMS Probe: Trnscrbd D/ (2034) Mone Advanced To Signed Dt/Tm/User: 08/25/12 (2035) JuanB Orig Print D/T: S: 08/25/2012 (2035) The NAME: IRWIN GRIGSBY [facility] [address] : 1985 AGE: 26 SEX: F [place], [place] [address] LOC: UNK PHONE #: [phone] EXAM DATE: 08/22/2012 STATUS: DEP CLI FAX #: [phone] RAD NO: Page 2 Signed Report Patient Name: IRWIN GRIGSBY Unit No: [id number] EXAMS: CPT CODE: [id number] US PREG AFTER TRI 30344 <Continued> The NAME: IRWIN GRIGSBY [facility] [address] : 1985 AGE: 26 SEX: F [place], [place] [address] LOC: UNK PHONE #: [phone] EXAM DATE: 08/22/2012 STATUS: DEP CLI FAX #: [phone] RAD NO: Page 3 Signed Report - US FET BIO PH CA 2010-10-17 W/O NST 00:00:00 [facility] 1985 Sex: F Patient Name: IRWIN GRIGSBY Unit No: [id number] EXAMS: CPT CODE: [id number] US FET BIO PH CA W/O NST 31718 [id number] DOP JENNIFER HOOKS ART 03416 [facility] [address] [place], [place] [address] BIOPHYSCIAL PROFILE ULTRASOUND REPORT --------- - Pat. Name: IRWIN GRIGSBY Study Date: 10/15/2010 1:14pm Pat. No: [id number] Referring MD: Ani Calabrese M.D LMP: 01/21/2010 Paper Hanger: Amber Urena GA by LMP: 38.1 weeks , Age: 02 1985, 24 GA by 1st: 36.1 weeks GA Selected: 36.1 weeks (From First S) GA by US: RAÚL: 11/11/2010 Hist/Ind: Oligo Scan #6 --------- - MEASUREMENTS AGE GROWTH EVALUATION Measurement GA Range Source % for 36.1 Ratios ------- ------- ----- Amniotic Fluid Index: 06.3 (07.7-24.9)* Q1: 2.4 Q2: 0.0 Q3: 1.8 Q4: 2.1 Biophysical Profile: 05/11 Breathin Tone: 2 Movement: 2 AFV: 2 --------- - CLINICAL SUMMARY Type of Gestation: Craig Intrauterine in vertex presentation. motion and organs seen: heart motion seen body and limb movements seen Placental location: Posterior Placental maturity : Grade 2 There is no evidence of placenta previa. Umbilical artery doppler S/D ratio is WNL. Amniotic fluid volume is decreased . Cervix length 29 mm. Thank you for allowing us to see this patient. Jasen Mares M.D. " Manually signed by Jasen Mares MD Reported and signed by: Jasen Mares MD [facility] [address] : 1985 AGE: 24 SEX: F [place] [address] LOC: UNMetrilo PHONE #: [phone] EXAM DATE: 10/15/2010 STATUS: DEP CLI FAX #: [phone] RAD NO: Page 1 Signed Report (CONTINUED) Patient Name: IRWIN GRIGSBY Unit No: [id number] EXAMS: CPT CODE: [id number] US FET BIO PH CA W/O NST 22940 [id number] DOP VELOCMTY UMBILCL ART 76706 <Continued> CC: Ani Calabrese MD Technologist: Page Lopez Probe: Trnscrbd D/ (1302) GABBIEJXC Advanced To Signed Dt/Tm/User: 10/17/10 (1302) [facility] NAME: IRWIN GRIGSBY [facility] Radiology Department PHYS: [facility] CaneloAni menezes [address] : 1985 AGE: 24 SEX: [place] [address] LOC: [facility] PHONE #: [phone] EXAM DATE: 10/15/2010 STATUS: DEP CLI FAX #: [phone] RAD NO: Page 2 Signed Report Patient Name: IRWIN GRIGSBY Unit No: [id number] EXAMS: CPT CODE: [id number] US FET BIO PH CA W/O NST 95118 [id number] DOP VELOCMTY UMBILCL ART 48703 <Continued> The NAME: IRWIN GRIGSBY Radiology Department PHYS: Ani Mendoza [address] [place] [address] : 1985 AGE: 24 SEX: F [place] [address] LOC: UNK PHONE #: [phone] EXAM DATE: 10/15/2010 STATUS: DEP CLI FAX #: [phone] RAD NO: Page 3 Signed Report - DOP VELOCMTY 2010-10-17 UMBILCL ART 00:00:00 [facility] 1985 Sex: F Patient Name: IRWIN GRIGSBY Unit No: [id number] EXAMS: CPT CODE: [id number] US FET BIO PH CA W/O NST 13084 [id number] DOP VELOCMTY UMBILCL ART [address] [address] BIOPHYSCIAL PROFILE ULTRASOUND REPORT --------- - Pat. Name: IRWIN GRIGSBY Study Date: 10/15/2010 1:14pm Pat. No: [id number] Referring MD: Ani Calabrese M.D LMP: 01/21/2010 Paper Hanger: Amber Urena GA by LMP: 38.1 weeks , Age: 02 1985, 24 GA by 1st: 36.1 weeks GA Selected: 36.1 weeks (From First S) GA by US: RAÚL: 11/11/2010 Hist/Ind: Oligo Scan #6 --------- - MEASUREMENTS AGE GROWTH EVALUATION Measurement GA Range Source % for 36.1 Ratios ------- ------- ----- Amniotic Fluid Index: 06.3 (07.7-24.9)* Q1: 2.4 Q2: 0.0 Q3: 1.8 Q4: 2.1 Biophysical Profile: 05/11 Breathin Tone: 2 Movement: 2 AFV: 2 --------- - CLINICAL SUMMARY Type of Gestation: Craig Intrauterine in vertex presentation. motion and organs seen: heart motion seen body and limb movements seen Placental location: Posterior Placental maturity : Grade 2 There is no evidence of placenta previa. Umbilical artery doppler S/D ratio is WNL. Amniotic fluid volume is decreased . Cervix length 29 mm. Thank you for allowing us to see this patient. Jasen Mares M.D. " Manually signed by Jasen Mares MD Reported and signed by: Jasen Mares MD [facility] NAME: IRWIN GRIGSBY Radiology Department PHYS: [facility] Ani Calabrese [address] : 1985 AGE: 24 SEX: F [place] [address] LOC: UNK PHONE #: [phone] EXAM DATE: 10/15/2010 STATUS: DEP CLI FAX #: [phone] RAD NO: Page 1 Signed Report (CONTINUED) Patient Name: IRWIN GRIGSBY Unit No: [id number] EXAMS: CPT CODE: [id number] US FET BIO PH CA W/O NST 75460 [id number] DOP VELOCMTY UMBILCL ART 50240 <Continued> CC: Ani Calabrese MD Technologist: Page Lopez Probe: Trnscrbd D/ (1302) F.RAD.JXC Advanced To Signed Dt/Tm/User: 10/17/10 (1302) F.RAD.JXC [facility] NAME: IRWIN GRIGSBY Radiology Department PHYS: [facility] Ani Calabrese [address] : 1985 AGE: 24 SEX: F [place], [place] [address] LOC: UNK PHONE #: [phone] EXAM DATE: 10/15/2010 STATUS: DEP CLI FAX #: [phone] RAD NO: Page 2 Signed Report Patient Name: IRWIN GRIGSBY Unit No: [id number] EXAMS: CPT CODE: [id number] US FET BIO PH CA W/O NST 40244 [id number] DOP VELOCMTY UMBILCL ART 69634 <Continued> The NAME: IRWIN GRIGSBY Radiology Department PHYS: DESIREE Ani Calabrese [address] : 1985 AGE: 24 SEX: F [place] [id number] LOC: UNK PHONE #: [phone] EXAM DATE: 10/15/2010 STATUS: DEP CLI FAX #: [phone] RAD NO: Page 3 Signed Report - US PREG UT 2010-10-07 [facility]SVAGINAL 00:00:00 [facility] : 1985 Sex: F Patient Name: IRWIN GRIGSBY Unit No: [id number] EXAMS: CPT CODE: [id number] US FET BIO PH CA W/O NST 56654 [id number] DOP VELOCMTY UMBIL ART 25573 [id number] US PREG UT TRANSVAGINAL [address] [facility] [address] [place], [place] [address] BIOPHYSCIAL PROFILE ULTRASOUND REPORT --------- - Pat. Name: IRWIN GRIGSBY Study Date: 10/05/2010 12:47pm Pat. No: [id number] Referring MD: Ani Calabrese M.D LMP: 01/21/2010 Paper Hanger: Blake Temple RD GA by LMP: 36.7 weeks , Age: 02 1985, 24 GA by 1st: 34.7 weeks GA Selected: 34.7 weeks (From First S) GA by US: ARÚL: 11/11/2010 Hist/Ind: oligo- scan 5 --------- - MEASUREMENTS AGE GROWTH EVALUATION Measurement GA Range Source % for 34.7 Ratios ------- ------- ----- Amniotic Fluid Index: 09.4 (08.1-24.8) Q1: 3.1 Q2: 2.2 Q3: 1.8 Q4: 2.3 Biophysical Profile: 05/11 Breathin Tone: 2 Movement: 2 AFV: 2 --------- - CLINICAL SUMMARY Type of Gestation: Craig Intrauterine in vertex presentation. motion and organs seen: heart motion seen body and limb movements observed tone noted breathing movements observed Placental location: Posterior Placental maturity : Grade 2 There is no evidence of placenta previa. Amniotic fluid volume is within the lower limit of normal. Uterus and adnexa: No abnormalities seen Cervix length = 2.7 cm. Biophysical Profile Movement score is 2. Breathing score is 2. Tone score is 2. Amniotic Fluid score is 2. Total Scores 8/8. Umbilical artery doppler S/D ratio is NORMAL. Thank you for allowing us to see this patient. The NAME: IRWIN GRIGSBY Radiology Department PHYS: DESIREE BharatiAni Fonseca [address] : 1985 AGE: 24 SEX: F [place], [place] [address] LOC: UNK PHONE #: [phone] EXAM DATE: 10/05/2010 STATUS: DEP ER FAX #: [phone] RAD NO: Page 1 Signed Report (CONTINUED) Patient Name: IRWIN GRIGSBY Unit No: [id number] EXAMS: CPT CODE: [id number] US FET BIO PH CA W/O NST 11386 [id number] DOP VELOCMTY UMBILCL ART 44973 [id number] US PREG UT TRANSVAGINAL 20489 <Continued> Bernadette Funes M.D. - " Manually signed by Bernadette Funes MD Reported and signed by: Bernadette Funes MD CC: Ani Calabrese MD Technologist: Blake Temple Probe: Trnscrbd D/ (1326) F.RADAvrilKXR Advanced To Signed Dt/Tm/User: 10/07/10 (1326) FAvrilRADAvrilKXR The NAME: IRWIN GRIGSBY Radiology Department PHYS: DESIREE CalabreseAni [address] : 1985 AGE: 24 SEX: F [place], [place] [address] LOC: UNK PHONE #: [phone] EXAM DATE: 10/05/2010 STATUS: DEP ER FAX #: [phone] RAD NO: Page 2 Signed Report Patient Name: IRWIN GRIGSBY Unit No: [id number] EXAMS: CPT CODE: [id number] US FET BIO PH CA W/O NST 75928 [id number] DOP VELOCMTY UMBILCL ART 72173 [id number] US PREG UT TRANSVAGINAL 40239 <Continued> The NAME: IRWIN GRIGSBY Radiology Department PHYS: Ani Calabrese [address] : 1985 AGE: 24 SEX: F [place] [address] LOC: UNK PHONE #: [phone] EXAM DATE: 10/05/2010 STATUS: DEP ER FAX #: [phone] RAD NO: Page 3 Signed Report - DOP VELOCMTY 2010-10-07 UMBILCL ART 00:00:00 [facility] : 1985 Sex: F Patient Name: IRWIN GRIGSBY Unit No: [id number] EXAMS: CPT CODE: [id number] US FET BIO PH CA W/O NST 67729 [id number] DOP VELOCMTY UMBILCL ART 60503 [id number] US PREG UT TRANSVAGINAL [address] [facility] [address] [place], [place] [address] BIOPHYSCIAL PROFILE ULTRASOUND REPORT --------- - Pat. Name: IRWIN GRIGSBY Study Date: 10/05/2010 12:47pm Pat. No: [id number] Referring MD: Ani Calabrese M.D LMP: 01/21/2010 Paper Hanger: Blake Temple RDMS GA by LMP: 36.7 weeks , Age: 02 1985, 24 GA by 1st: 34.7 weeks GA Selected: 34.7 weeks (From First S) GA by US: RAÚL: 11/11/2010 Hist/Ind: oligo- scan 5 --------- - MEASUREMENTS AGE GROWTH EVALUATION Measurement GA Range Source % for 34.7 Ratios ------- ------- ----- Amniotic Fluid Index: 09.4 (08.1-24.8) Q1: 3.1 Q2: 2.2 Q3: 1.8 Q4: 2.3 Biophysical Profile: 05/11 Breathin Tone: 2 Movement: 2 AFV: 2 --------- - CLINICAL SUMMARY Type of Gestation: Craig Intrauterine in vertex presentation. motion and organs seen: heart motion seen body and limb movements observed tone noted breathing movements observed Placental location: Posterior Placental maturity : Grade 2 There is no evidence of placenta previa. Amniotic fluid volume is within the lower limit of normal. Uterus and adnexa: No abnormalities seen Cervix length = 2.7 cm. Biophysical Profile Movement score is 2. Breathing score is 2. Tone score is 2. Amniotic Fluid score is 2. Total Scores 05/11. Umbilical artery doppler S/D ratio is NORMAL. Thank you for allowing us to see this patient. The NAME: IRWIN GRIGSBY Radiology Department PHYS: DESIREE Ani Calabrese [address] : 1985 AGE: 24 SEX: F [place], [place] [address] LOC: UNK PHONE #: [phone] EXAM DATE: 10/05/2010 STATUS: DEP ER FAX #: [phone] RAD NO: Page 1 Signed Report (CONTINUED) Patient Name: IRWIN GRIGSBY Unit No: [id number] EXAMS: CPT CODE: [id number] US FET BIO PH CA W/O NST 32367 [id number] DOP VELOCMTY UMBILCL ART 35504 [id number] US PREG UT TRANSVAGINAL 94083 <Continued> Bernadette Funes M.D. - " Manually signed by Bernadette Funes MD Reported and signed by: Bernadette Funes MD CC: Ani Calabrese MD Technologist: Blake Temple Probe: Trnscrbd D/ (1326) F.RAD.KXR Advanced To Signed Dt/Tm/User: 10/07/10 (1326) [email or web address] The NAME: IRWIN GRIGSBY Radiology Department PHYS: DESIREE Ani Calabrese [address] : 1985 AGE: 24 SEX: F [place], [place] [address] LOC: UNK PHONE #: [phone] EXAM DATE: 10/05/2010 STATUS: DEP ER FAX #: [phone] RAD NO: Page 2 Signed Report Patient Name: IRWIN GRIGSBY Unit No: [id number] EXAMS: CPT CODE: [id number] US FET BIO PH CA W/O NST 31672 [id number] DOP VELOCMTY UMBILCL ART 14730 [id number] US PREG UT TRANSVAGINAL [address]66 <Continued> The NAME: IRWIN GRIGSBY Radiology Department PHYS: Ani Mendoza [address] : 1985 AGE: 24 SEX: F [place], [place] [address] LOC: UNK PHONE #: [phone] EXAM DATE: 10/05/2010 STATUS: DEP ER FAX #: [phone] RAD NO: Page 3 Signed Report - US FET BIO PH CA 2010-10-07 W/O NST 00:00:00 [facility] : 1985 Sex: F Patient Name: IRWIN GRIGSBY Unit No: [id number] EXAMS: CPT CODE: [id number] US FET BIO PH CA W/O NST 26049 [id number] DOP VELOCMTY UMBIL ART 71031 [id number] US PREG UT TRANSVAGINAL [address] [facility] [address] [place], [place] [address] BIOPHYSCIAL PROFILE ULTRASOUND REPORT --------- - Pat. Name: IRWIN GRIGSBY Study Date: 10/05/2010 12:47pm Pat. No: [id number] Referring MD: Ani Calabrese M.D LMP: 01/21/2010 Paper Hanger: Blake Temple RD GA by LMP: 36.7 weeks , Age: 02 1985, 24 GA by 1st: 34.7 weeks GA Selected: 34.7 weeks (From First S) GA by US: RAÚL: 11/11/2010 Hist/Ind: oligo- scan 5 --------- - MEASUREMENTS AGE GROWTH EVALUATION Measurement GA Range Source % for 34.7 Ratios ------- ------- ----- Amniotic Fluid Index: 09.4 (08.1-24.8) Q1: 3.1 Q2: 2.2 Q3: 1.8 Q4: 2.3 Biophysical Profile: 05/11 Breathin Tone: 2 Movement: 2 AFV: 2 --------- - CLINICAL SUMMARY Type of Gestation: Craig Intrauterine in vertex presentation. motion and organs seen: heart motion seen body and limb movements observed tone noted breathing movements observed Placental location: Posterior Placental maturity : Grade 2 There is no evidence of placenta previa. Amniotic fluid volume is within the lower limit of normal. Uterus and adnexa: No abnormalities seen Cervix length = 2.7 cm. Biophysical Profile Movement score is 2. Breathing score is 2. Tone score is 2. Amniotic Fluid score is 2. Total Scores 8/8. Umbilical artery doppler S/D ratio is NORMAL. Thank you for allowing us to see this patient. The NAME: IRWIN GRIGSBY [facility]iology [facility] [address] : 1985 AGE: 24 SEX: F [place] [id number] LOC: UNK PHONE #: [phone] EXAM DATE: 10/05/2010 STATUS: DEP ER FAX #: [phone] RAD NO: Page 1 Signed Report (CONTINUED) Patient Name: IRWIN GRIGSBY Unit No: [id number] EXAMS: CPT CODE: [id number] US FET BIO PH CA W/O NST 31170 [id number] DOP VELOCMTY UMBILCL ART 31936 [id number] US PREG UT TRANSVAGINAL 61722 <Continued> Bernadette Funes M.D. - " Manually signed by Bernadette Funes MD Reported and signed by: Bernadette Funes MD CC: Ani Calabrese MD Technologist: Blake Temple Probe: Trnscrbd D/ (1326) F.RAD.KXR Advanced To Signed Dt/Tm/User: 10/07/10 (1326) FAvrilRADAvrilKXR The NAME: IRWIN GRIGSBY Radiology Department PHYS[facility]ab[facility] [address] : 1985 AGE: 24 SEX: F [place] [address] LOC: UNK PHONE #: [phone] EXAM DATE: 10/05/2010 STATUS: DEP ER FAX #: [phone] RAD NO: Page 2 Signed Report Patient Name: IRWIN GRIGSBY Unit No: [id number] EXAMS: CPT CODE: [id number] US FET BIO PH CA W/O NST 34336 [id number] DOP VELOCMTY UMBILCL ART 78455 [id number] US PREG UT TRANSVAGINAL 75842 <Continued> The NAME: IRWIN GRIGSBY Radiology Department PHYS: DESIREE Ani Calabrese [address] : 1985 AGE: 24 SEX: F [place] [address] LOC: UNK PHONE #: [phone] EXAM DATE: 10/05/2010 STATUS: DEP ER FAX #: [phone] RAD NO: Page 3 Signed Report - DOP VELOCMTY 2010-10-06 UMBILCL ART 00:00:00 [facility] : 1985 Sex: F Patient Name: IRWIN GRIGSBY Unit No: [id number] EXAMS: CPT CODE: [id number] US FET BIO PH CA W/O NST 98510 [id number] DOP VELOCMTY UMBILCL ART [address] [facility] [address], [place] [address] BIOPHYSCIAL PROFILE ULTRASOUND REPORT --------- - Pat. Name: IRWIN GRIGSBY Study Date: 10/03/2010 12:21pm Pat. No: [id number] Referring MD: Ani Calabrese M.D LMP: 01/21/2010 Paper Hanger: Tabatha Larkin GA by LMP: 36.4 weeks , Age: 02 1985, 24 GA by 1st: 34.4 weeks GA Selected: 34.4 weeks (From First S) GA by US: RAÚL: 11/11/2010 Hist/Ind: OLIGO SCAN#4 --------- - MEASUREMENTS AGE GROWTH EVALUATION Measurement GA Range Source % for 34.4 Ratios ------- ------- ----- Amniotic Fluid Index: 06.0 (08.1-24.8)* Q1: 2.3 Q2: 0.0 Q3: 2.1 Q4: 1.6 Biophysical Profile: 05/11 Breathin Tone: 2 Movement: 2 AFV: 2 --------- - CLINICAL SUMMARY Type of Gestation: Craig Intrauterine in vertex presentation. motion and organs seen: heart motion seen body and limb movements observed tone noted breathing movements observed Placental location: Posterior Placental maturity : Grade 2 There is no evidence of placenta previa. Amniotic fluid volume is decreased. (MARNI = 6.0). Uterus and adnexa: No abnormalities seen Biophysical Profile Movement score is 2. Breathing score is 2. Tone score is 2. Amniotic Fluid score is 2. Total Scores 88. Umbilical artery doppler S/D ratio is UPPER NORMAL TO MILDLY ELEVATED (2.9 - 3.3). Thank you for allowing us to see this patient. The NAME: IRWIN GRIGSBY Radiology Department PHYS: Ani Mendoza [address] : 1985 AGE: 24 SEX: F [place], [place] [address] LOC: UNK PHONE #: [phone] EXAM DATE: 10/03/2010 STATUS: DIS RCR FAX #: [phone] RAD NO: Page 1 Signed Report (CONTINUED) Patient Name: IRWIN GRIGSBY Unit No: [id number] EXAMS: CPT CODE: [id number] US FET BIO PH CA W/O NST 88077 [id number] DOP VELOCMTY UMBILCL ART 99309 <Continued> Bernadette Funes M.D. - " Manually signed by Bernadette Funes MD Reported and signed by: Bernadette Funes MD CC: Ani Calabrese MD Technologist: Tabatha Blanton Probe: Trnscrbd D/ (1234) F.RAD.JXC Advanced To Signed Dt/Tm/User: 10/06/10 (1234) F.RAD.JXC The NAME: IRWIN GRIGSBY Radiology Department PHYS: Ani Mendoza [address] : 1985 AGE: 24 SEX: F [place], [place] [address] LOC: UNK PHONE #: [phone] EXAM DATE: 10/03/2010 STATUS: DIS RCR FAX #: [phone] RAD NO: Page 2 Signed Report Patient Name: IRWIN GRIGSBY Unit No: [id number] EXAMS: CPT CODE: [id number] US FET BIO PH CA W/O NST 27747 [id number] DOP VELOCMTY UMBILCL ART 40998 <Continued> The NAME: IRWIN GRIGSBY Radiology Department PHYS: Ani Mendoza [address] : 1985 AGE: 24 SEX: F [place] [address] LOC: UNK PHONE #: [phone] EXAM DATE: 10/03/2010 STATUS: DIS RCR FAX #: [phone] RAD NO: Page 3 Signed Report - US FET BIO PH CA 2010-10-06 W/O NST 00:00:00 [facility] : 1985 Sex: F Patient Name: IRWIN GRIGSBY Unit No: [id number] EXAMS: CPT CODE: [id number] US FET BIO PH CA W/O NST 39913 [id number] [facility] [address] [facility] [address] [place], [place] [address] BIOPHYSCIAL PROFILE ULTRASOUND REPORT --------- - Pat. Name: IRWIN GRIGSBY Study Date: 10/03/2010 12:21pm Pat. No: [id number] Referring MD: Ani Calabrese M.D LMP: 01/21/2010 Paper Hanger: Tabatha Larkin GA by LMP: 36.4 weeks , Age: 02 1985, 24 GA by 1st: 34.4 weeks GA Selected: 34.4 weeks (From First S) GA by US: RAÚL: 11/11/2010 Hist/Ind: OLIGO SCAN#4 --------- - MEASUREMENTS AGE GROWTH EVALUATION Measurement GA Range Source % for 34.4 Ratios ------- ------- ----- Amniotic Fluid Index: 06.0 (08.1-24.8)* Q1: 2.3 Q2: 0.0 Q3: 2.1 Q4: 1.6 Biophysical Profile: 05/11 Breathin Tone: 2 Movement: 2 AFV: 2 --------- - CLINICAL SUMMARY Type of Gestation: Craig Intrauterine in vertex presentation. motion and organs seen: heart motion seen body and limb movements observed tone noted breathing movements observed Placental location: Posterior Placental maturity : Grade 2 There is no evidence of placenta previa. Amniotic fluid volume is decreased. (MARNI = 6.0). Uterus and adnexa: No abnormalities seen Biophysical Profile Movement score is 2. Breathing score is 2. Tone score is 2. Amniotic Fluid score is 2. Total Scores 8/8. Umbilical artery doppler S/D ratio is UPPER NORMAL TO MILDLY ELEVATED (2.9 - 3.3). Thank you for allowing us to see this patient. The NAME: IRWIN GRIGSBY Radiology [facility] Cal[facility] [address] : 1985 AGE: 24 SEX: F [place] [address] LOC: UNK PHONE #: [phone] EXAM DATE: 10/03/2010 STATUS: DIS RCR FAX #: [phone] RAD NO: Page 1 Signed Report (CONTINUED) Patient Name: IRWIN GRIGSBY Unit No: [id number] EXAMS: CPT CODE: [id number] US FET BIO PH CA W/O NST 30504 [id number] DOP VELOCMTY UMBILCL ART 34710 <Continued> Bernadette Funes M.D. - " Manually signed by Bernadette Funes MD Reported and signed by: Bernadette Funes MD CC: Ani Calabrese MD Technologist: Tabatha Blanton Probe: Trnscrbd D/ (1234) F.RAD.JXC Advanced To Signed Dt/Tm/User: 10/06/10 (1234) FAvrilRADAvrilJCHUCK The NAME: IRWIN GRIGSBY Radiology Department PHYS: [facility] Ani Calabrese [address] : 1985 AGE: 24 SEX: F [place] [address] LOC: UNK PHONE #: [phone] EXAM DATE: 10/03/2010 STATUS: DIS RCR FAX #: [phone] RAD NO: Page 2 Signed Report Patient Name: IRWIN GRIGSBY Unit No: [id number] EXAMS: CPT CODE: [id number] US FET BIO PH CA W/O NST 53431 [id number] DOP VELOCMTY UMBILCL ART 65899 <Continued> The NAME: IRWIN GRIGSBY Radiology Department PHYS: SERGEI.Radha Ani Calabrese [address] : 1985 AGE: 24 SEX: [place] [address] LOC: UNK PHONE #: [phone] EXAM DATE: 10/03/2010 STATUS: DIS RCR FAX #: [phone] RAD NO: Page 3 Signed Report - US FET BIO PH CA 2010-10-02 W/O NST 00:00:00 [facility] : 1985 Sex: F Patient Name: IRWIN GRIGSBY Unit No: [id number] EXAMS: CPT CODE: [id number] US PREG AFTER 1ST TRI 85499 [id number] US FET BIO PH CA W/O NST 564[address] [facility] [address] [place], [place] [address] OBSTETRICAL BIOPHYSICAL ULTRASOUND REPORT --------- - Pat. Name: IRWIN GRIGSBY Study Date: 10/01/2010 1:11pm Pat. No: [id number] Referring MD: Ani Calabrese M.D LMP: 01/21/2010 Paper Hanger: Luz Elena Mei GA by LMP: 36.1 weeks , Age: 02 1985, 24 GA by 1st: 34.1 weeks GA Selected: 34.1 weeks (From First S) GA by US: 33.6 weeks RAÚL: 11/11/2010 Hist/Ind: SCAN 3 SMALL FOR DATES --------- - MEASUREMENTS AGE GROWTH EVALUATION Measurement GA Range Source % for 34.1 Ratios ------- ------- ----- BPD 8.2 cm 33.3 wk (30.3-36.3) Hadlock BPD 38% FL/BPD 0.80 (0.71 - 0.87) HC 30.5 cm 33.6 wk (30.6-36.6) Hadlock HC 41% FL/AC 0.22 (0.20 - 0.24) AC 30.5 cm 34.6 wk (31.6-37.6) Hadlock AC 57% HC/AC 1.00 (0.94 - 1.13) FL 6.6 cm 33.8 wk (30.8-36.7) Hadlock FL 44% CI 0.79 (0.70 - 0.86) HL 6.0 cm 34.8 wk (32.1-37.5) Kaveh HL 60% GA for sonogram 33.6 wk (31.1-36.0) Weight Estimate: based on (BPD,HC,AC,FL) Hadlock Weight: 2357 gm () Hadlock : 5lbs, 3oz Normal: 2250 gm (3537-3578) Luisa Wt% 56% for 34.1 wks Amniotic Fluid Index: 05.9 (08.1-24.8)* Q1: 3.4 Q2: 0.0 Q3: 2.5 Q4: 0.0 --------- - CLINICAL SUMMARY Type of Gestation: Craig Intrauterine in vertex presentation. size is appropriate for gestational age by weight. growth: Consistent with normal growth motion and organs seen: heart motion seen body and limb movements seen Four chamber heart observed Left ventricular outflow tract (LVOT) seen Right ventricular outflow tract (RVOT) seen Normal intracranial anatomy seen Umbilical cord insertion in fetus seen stomach, Renal Fossa, Bladder and Spine seen Three vessel umbilical cord noted Placental location: Posterior Placental maturity : Grade 1 There is no evidence of placenta previa. Amniotic fluid volume is decreased (Oligohydramnios). Cervix length 41 mm. The NAME: JAZMINE GRIGSBYREYNA SULLIVAN Radiology Department PHYS: Ani Mendoza [address] : 1985 AGE: 24 SEX: F [place], [place] [address] LOC: UNK PHONE #: [phone] EXAM DATE: 10/01/2010 STATUS: DEP ER FAX #: [phone] RAD NO: Page 1 Signed Report (CONTINUED) Patient Name: IRWIN GRIGSBY Unit No: [id number] EXAMS: CPT CODE: [id number] US PREG AFTER 1ST TRI 08959 [id number] FET BIO PH CA W/O NST 78599 <Continued> Thank you for allowing us to see this patient. Jasen Mares M.D. " Manually signed by Jasen Mares MD Reported and signed by: Jasen Mares MD CC: Ani Calabrese MD Technologist: LUZ ELENA MEI Probe: Trnscrbd D/ (1031) F.RAD.KXR Advanced To Signed Dt/Tm/User: 10/02/10 1035 [email or web address] The NAME: IRWIN GRIGSBY Radiology Department PHYS: DESIREE Ani Calabrese [address] : 1985 AGE: 24 SEX: F [place], [place] [address] LOC: UNK PHONE #: [phone] EXAM DATE: 10/01/2010 STATUS: DEP ER FAX #: [phone] RAD NO: Page 2 Signed Report Patient Name: IRWIN GRIGSBY Unit No: [id number] EXAMS: CPT CODE: [id number] US PREG AFTER 1ST TRI 00746 [id number] US FET BIO PH CA W/O NST 64842 <Continued> The NAME: IRIWN GRIGSBY Radiology Department PHYS: JOSENATASHAAvrilRadha BharatiAni Fonseca [address] : 1985 AGE: 24 SEX: F [place] [address] LOC: UNK PHONE #: [phone] EXAM DATE: 10/01/2010 STATUS: DEP ER FAX #: [phone] RAD NO: Page 3 Signed Report - US PREG AFTER 2010-10-02 1ST TRI 00:00:00 [facility] : 1985 Sex: F Patient Name: IRWIN GRIGSBY Unit No: [id number] EXAMS: CPT CODE: [id number] US PREG AFTER 1ST TRI 58082 [id number] US FET BIO PH CA W/O NST [address]64[address] [facility] [address] [place], [place] [address] OBSTETRICAL BIOPHYSICAL ULTRASOUND REPORT --------- - Pat. Name: IRWIN GRIGSBY Study Date: 10/01/2010 1:11pm Pat. No: [id number] Referring MD: Ani Calabrese M.D LMP: 01/21/2010 Paper Hanger: Luz Elena Mei GA by LMP: 36.1 weeks , Age: 02 1985, 24 GA by 1st: 34.1 weeks GA Selected: 34.1 weeks (From First S) GA by US: 33.6 weeks RAÚL: 11/11/2010 Hist/Ind: SCAN 3 SMALL FOR DATES --------- - MEASUREMENTS AGE GROWTH EVALUATION Measurement GA Range Source % for 34.1 Ratios ------- ------- ----- BPD 8.2 cm 33.3 wk (30.3-36.3) Hadlock BPD 38% FL/BPD 0.80 (0.71 - 0.87) HC 30.5 cm 33.6 wk (30.6-36.6) Hadlock HC 41% FL/AC 0.22 (0.20 - 0.24) AC 30.5 cm 34.6 wk (31.6-37.6) Hadlock AC 57% HC/AC 1.00 (0.94 - 1.13) FL 6.6 cm 33.8 wk (30.8-36.7) Hadlock FL 44% CI 0.79 (0.70 - 0.86) HL 6.0 cm 34.8 wk (32.1-37.5) Kaveh HL 60% GA for sonogram 33.6 wk (31.1-36.0) Weight Estimate: based on (BPD,HC,AC,FL) Hadlock Weight: 2357 gm (0785-5099) Hadlock : 5lbs, 3oz Normal: 2250 gm (6246-9120) Luisa Wt% 56% for 34.1 wks Amniotic Fluid Index: 05.9 (08.1-24.8)* Q1: 3.4 Q2: 0.0 Q3: 2.5 Q4: 0.0 --------- - CLINICAL SUMMARY Type of Gestation: Craig Intrauterine in vertex presentation. size is appropriate for gestational age by weight. growth: Consistent with normal growth motion and organs seen: heart motion seen body and limb movements seen Four chamber heart observed Left ventricular outflow tract (LVOT) seen Right ventricular outflow tract (RVOT) seen Normal intracranial anatomy seen Umbilical cord insertion in fetus seen stomach, Renal Fossa, Bladder and Spine seen Three vessel umbilical cord noted Placental location: Posterior Placental maturity : Grade 1 There is no evidence of placenta previa. Amniotic fluid volume is decreased (Oligohydramnios). Cervix length 41 mm. [facility] [place] NAME: IRWIN [facility] Radiology Department PHYS: Ani Mendoza [address] : 1985 AGE: 24 SEX: F [place], [place] [address] LOC: UNK PHONE #: [phone] EXAM DATE: 10/01/2010 STATUS: DEP ER FAX #: [phone] RAD NO: Page 1 Signed Report (CONTINUED) Patient Name: IRWIN GRIGSBY Unit No: [id number] EXAMS: CPT CODE: [id number] US PREG AFTER 1ST TRI [id number] US FET BIO PH CA W/O NST 16553 <Continued> Thank you for allowing us to see this patient. Jasen Mares M.D. " Manually signed by Jasen Mares MD Reported and signed by: Jasen Mares MD CC: Ani Calabrese MD Technologist: LUZ ELENA MEI Probe: Trnscrbd D/ (1720) F.RAD.KXR Advanced To Signed Dt/Tm/User: 10/02/10 (2003) [email or web address] The NAME: IRWIN [facility] [address] : 1985 AGE: 24 SEX: F [place] [address] LOC: UNK PHONE #: [phone] EXAM DATE: 10/01/2010 STATUS: DEP ER FAX #: [phone] RAD NO: Page 2 Signed Report Patient Name: IRWIN GRIGSBY Unit No: [id number] EXAMS: CPT CODE: [id number] US PREG AFTER 1ST TRI 86836 [id number] US FET BIO PH CA W/O NST 45952 <Continued> The NAME: IRWIN [facility] Radiology [facility] [address] : 1985 AGE: 24 SEX: F [place] [address] LOC: UNK PHONE #: [phone] EXAM DATE: 10/01/2010 STATUS: DEP ER FAX #: [phone] RAD NO: Page 3 Signed Report - US PREG AFTER 2010-06-17 TRI 00:00:00 [facility] : 1985 Sex: F Patient Name: IRWIN GRIGSBY Unit No: [id number] EXAMS: CPT CODE: [id number] US PREG AFTER TRI [address] [facility] [address], [place] [address] OBSTETRICAL ULTRASOUND REPORT --------- - Pat. Name: IRWIN GRIGSBY Study Date: 06/13/2010 10:23am Pat. No: [id number] Referring MD: Ani Calabrese M.D LMP: 01/21/2010 Paper Hanger: Tabatha Larkin GA by LMP: 20.4 weeks , Age: 02 1985, 24 GA by 1st: 18.4 weeks GA Selected: 18.4 weeks (From Known E) GA by US: 19.1 weeks RAÚL: 11/11/2010 Hist/Ind: ANATOMY SCREEN SCAN#2 --------- - MEASUREMENTS AGE GROWTH EVALUATION Measurement GA Range Source % for 18.4 Ratios ------- ------- ----- BPD 4.3 cm 18.9 wk (17.9-19.9) Hadlock BPD 72% FL/BPD 0.72 HC 16.0 cm 18.7 wk (17.1-20.3) Hadlock HC 58% FL/AC 0.21 AC 14.5 cm 19.5 wk (17.5-21.5) Hadlock AC 74% HC/AC 1.10 (1.07 - 1.26) FL 3.1 cm 19.2 wk (17.2-21.3) Hadlock FL 68% CI 0.80 (0.70 - 0.86) HL 2.8 cm 19.0 wk (16.3-21.7) Kaveh HL 60% GA for sonogram 19.1 wk (17.7-20.5) Weight Estimate: based on (BPD,HC,AC,FL) Hadlock Weight: 301 gm (257-345) Hadlock : 0lbs, 10oz - CLINICAL SUMMARY Type of Gestation: Craig Intrauterine in transverse presentation. size is appropriate for gestational age by weight. growth: Consistent with normal growth motion and organs seen: heart motion seen somatic activity observed body and limb movements seen Four chamber heart observed Left ventricular outflow tract (LVOT) seen Right ventricular outflow tract (RVOT) seen Regular cardiac rhythm observed Normal intracranial anatomy seen Umbilical cord insertion in fetus seen stomach, Renal Fossa, Bladder and Spine seen Three vessel umbilical cord noted abnormalities observed: None seen at this exam Placental location: Posterior Fundal Placental maturity : Grade 1 There is no evidence of placenta previa. The NAME: IRWIN GRIGSBY Radiology Department [facility]: [facility] Calabrese[facility] [address] : 1985 AGE: 24 SEX: F [place] [address] LOC: UNK PHONE #: [phone] EXAM DATE: 06/13/2010 STATUS: DEP CLI FAX #: [phone] RAD NO: Page 1 Signed Report (CONTINUED) Patient Name: IRWIN GRIGSBY Unit No: [id number] EXAMS: CPT CODE: [id number] US PREG AFTER 1ST TRI 25886 <Continued> Amniotic fluid volume is normal. Uterus and adnexa: No abnormalities seen Thank you for allowing us to see this patient. Pearl Askew M.D. " Manually signed by Jelena Askew MD Reported and signed by: Jelena Askew MD CC: Ani Calabrese MD Technologist: Tabatha Blanton Probe: Trnscrbd D/ (1340) F.RAD.JXC Advanced To Signed Dt/Tm/User: 06/17/10 (1340) F.RAD.JXC The NAME: IWRIN [facility] Radiology Department [facility]YS: [facility] Calabrese[facility]i [address] : 1985 AGE: 24 SEX: F [place] [address] LOC: UNK PHONE #: [phone] EXAM DATE: 06/13/2010 STATUS: DEP CLI FAX #: [phone] RAD NO: Page 2 Signed Report Patient Name: IRWIN GRIGSBY Unit No: [id number] EXAMS: CPT CODE: [id number] US PREG AFTER 1ST TRI 90989 <Continued> The NAME: IRWIN GRIGSBY Radiology Department PHYS: [facility] CaneloAin menezes [address] : 1985 AGE: 24 SEX: F [place], [place] [address] LOC: UNK PHONE #: [phone] EXAM DATE: 06/13/2010 STATUS: ZEUS CLI FAX #: [phone] RAD NO: Page 3 Signed Report - US PREG EVAL 2010-03-25 TRIMTR 00:00:00 [facility] : 1985 Sex: F Patient Name: IRWIN GRIGSBY Unit No: [id number] EXAMS: CPT CODE: [id number] US PREG EVAL 1ST TRIMTR 59224 [id number] US PREG UT TRANSVAGINAL [address] [facility] [address] [place], [place] [address] OBSTETRICAL ULTRASOUND REPORT --------- - Pat. Name: IRWIN GRIGSBY Study Date: 03/21/2010 10:16am Pat. No: [id number] Referring MD: Ani Calabrese M.D LMP: 01/21/2010 Paper Hanger: Tabatha Larkin GA by LMP: 08.4 weeks , Age: 02 1985, 24 GA by 1st: GA Selected: 06.9 weeks (From Known E) GA by US: 07.4 weeks RAÚL: 11/08/2010 Hist/Ind: VIABILITY DATING SCAN#1 --------- - MEASUREMENTS AGE GROWTH EVALUATION Measurement GA Range Source % for 06.9 Ratios ------- ------- ----- CRL 1.2 cm 07.4 wk (06.8-08.0) Hadlock CRL 90% GA for sonogram 07.4 wk (06.8-08.0) Weight Estimate: based on (CRL) Avg Weight: gm (-) --------- - CLINICAL SUMMARY Type of Gestation: Craig Intrauterine in variable presentation. size is appropriate for gestational age by weight. growth: Consistent with normal growth motion and organs seen: heart motion seen somatic activity observed abnormalities observed: None seen at this exam Placental location: Forming Amniotic fluid volume is normal. Uterus and adnexa: THERE IS A LEFT HEMORRHAGIC CYST-17MM RECOMMEND REPEAT EXAM AT 18-20 WEEKS FOR ANATOMIC SURVEY AND GROWTH. Thank you for allowing us to see this patient. Pearl Askew M.D. " Manually signed by Jelena Askew MD Reported and signed by: Jelena Askew MD [facility] [place] [place] [place] [facility] NAME: IRWIN GRIGSBY Radiology Department PHYS: 01 Ani Francisco [address] : 1985 AGE: 24 SEX: F [place] [address] LOC: UNK PHONE #: [phone] EXAM DATE: 03/21/2010 STATUS: DEP CLI FAX #: [phone] RAD NO: Page 1 Signed Report (CONTINUED) Patient Name: IRWIN GRIGSBY Unit No: [id number] EXAMS: CPT CODE: [id number] US PREG EVAL 1ST TRIMTR 74023 [id number] US PREG UT TRANSVAGINAL [address] <Continued> CC: Ani Calabrese MD Technologist: Tabatha Blanton Probe: Trnscrbd D/ (1457) F.RAD.JXC Advanced To Signed Dt/Tm/User: 03/25/10 (1458) F.RAD.JXC The NAME: IRWIN GR[facility] Radiology Department [facility]YS[facility] [address] : 1985 AGE: 24 SEX: [place] [address] LOC: UNK PHONE #: [phone] EXAM DATE: 03/21/2010 STATUS: DEP CLI FAX #: [phone] RAD NO: Page 2 Signed Report Patient Name: IRWIN GRIGSBY Unit No: [id number] EXAMS: CPT CODE: [id number] US PREG EVAL 1ST TRIMTR 74785 [id number] US PREG UT TRANSVAGINAL 83010 <Continued> The NAME: IRWIN [facility] Radiology Department [facility]YS: [facility] Ani Calabrese [address] : 1985 AGE: 24 SEX: F [place] [address] LOC: UNK PHONE #: [phone] EXAM DATE: 03/21/2010 STATUS: DEP CLI FAX #: [phone] RAD NO: Page 3 Signed Report - US PREG UT 2010-03-25 TRANSVAGINAL 00:00:00 [facility] : 1985 Sex: F Patient Name: IRWIN GRIGSBY Unit No: [id number] EXAMS: CPT CODE: [id number] US PREG EVAL 1ST TRIMTR 82890 [id number] US PREG UT TRANSVAGINAL [address] [facility] [address], [place] [address] OBSTETRICAL ULTRASOUND REPORT --------- - Pat. Name: IRWIN GRIGSBY Study Date: 03/21/2010 10:16am Pat. No: [id number] Referring MD: Ani Calabrese M.D LMP: 01/21/2010 Paper Hanger: Tabatha Larkin GA by LMP: 08.4 weeks , Age: 02 1985, 24 GA by 1st: GA Selected: 06.9 weeks (From Known E) GA by US: 07.4 weeks RAÚL: 11/08/2010 Hist/Ind: VIABILITY DATING SCAN#1 --------- - MEASUREMENTS AGE GROWTH EVALUATION Measurement GA Range Source % for 06.9 Ratios ------- ------- ----- CRL 1.2 cm 07.4 wk (06.8-08.0) Hadlock CRL 90% GA for sonogram 07.4 wk (06.8-08.0) Weight Estimate: based on (CRL) Avg Weight: gm (-) --------- - CLINICAL SUMMARY Type of Gestation: Craig Intrauterine in variable presentation. size is appropriate for gestational age by weight. growth: Consistent with normal growth motion and organs seen: heart motion seen somatic activity observed abnormalities observed: None seen at this exam Placental location: Forming Amniotic fluid volume is normal. Uterus and adnexa: THERE IS A LEFT HEMORRHAGIC CYST-17MM RECOMMEND REPEAT EXAM AT 18-20 WEEKS FOR ANATOMIC SURVEY AND GROWTH. Thank you for allowing us to see this patient. Pearl Askew M.D. " Manually signed by Jelena Askew MD Reported and signed by: Jelena Askew MD [facility] [place] [place] [facility] [place] [facility] NAME: IRWIN GRIGSBY Radiology Department PHYS: Ani Mendoza [address] : 1985 AGE: 24 SEX: F [place], [place] [address] LOC: UNK PHONE #: [phone] EXAM DATE: 03/21/2010 STATUS: DEP CLI FAX #: [phone] RAD NO: Page 1 Signed Report (CONTINUED) Patient Name: IRWIN GRIGSBY Unit No: [id number] EXAMS: CPT CODE: [id number] US PREG EVAL 1ST TRIMTR 60936 [id number] US PREG UT TRANSVAGINAL [address]320 <Continued> CC: Ani Calabrese MD Technologist: Tabatha Blanton Probe: Trnscrbd D/ (1457) F.RAD.JXC Advanced To Signed Dt/Tm/User: 03/25/10 (2131) F.RAD.JXC The NAME: IRWIN GRIG[facility]BY Radiology Department PHYS: [facility] Ani Calabrese [address] : 1985 AGE: 24 SEX: F [place] [address] LOC: UNK PHONE #: [phone] EXAM DATE: 03/21/2010 STATUS: DEP CLI FAX #: [phone] RAD NO: Page 2 Signed Report Patient Name: IRWIN GRIGSBY Unit No: [id number] EXAMS: CPT CODE: [id number] US PREG EVAL 1ST TRIMTR 47816 [id number] US PREG UT TRANSVAGINAL 12856 <Continued> The NAME: IRWIN GR[facility]BY Radiology Department PHYS: [facility]. Ani Calabrese [address] : 1985 AGE: 24 SEX: F [place] [address] LOC: UNK PHONE #: [phone] EXAM DATE: 03/21/2010 STATUS: DEP CLI FAX #: [phone] RAD NO: Page 3 Signed Report
--- NOTE | 2021-01-07 09:57 | ER ---
Nurse's Notes [facility] Name: Doni Ramires Age: 35 yrs Sex: Female : 1985 Arrival Date: 01/07/2021 Time: 08:28 Bed Waiting Private MD: Diagnosis: Presentation: 01/07 08:36 Chief complaint: Patient states: got up around 0300 today to take her dog out, and had sv a syncopal episode. Hit the right side of her head, right cheek and laceration on the inside of her upper lip after hitting her dresser. Pt reports feeling flush at this time. A\\T\\O x 3. Coronavirus screen: Client denies travel out of the [place] in the last 14 days. At this time, the client does not indicate any symptoms associated with coronavirus-19. Ebola Screen: No symptoms or risks identified at this time. Risk Assessment: Do you want to hurt yourself or someone else? Patient reports no desire to harm self or others. Onset of symptoms was January 07, 2021. 08:36 Method Of Arrival: Ambulatory sv 08:36 Acuity: LADONNA 3 sv 08:39 Initial Sepsis Screen: Does the patient meet any 2 criteria? No. Patient's initial sv sepsis screen is negative. Does the patient have a suspected source of infection? No. Patient's initial sepsis screen is negative. Historical: - Allergies: 08:39 No Known Allergies; sv - PMHx: 08:39 "GI issues"; sv - PSHx: 08:39 knee repair; right meniscus tear; sv - Immunization history:: Adult Immunizations up to date, Client reports receiving the 1st dose of the Covid vaccine. Vital Signs: 08:39 BP 106 / 65; Pulse 75; Resp 16; Temp 98.8; Pulse Ox 100% ; Weight 52.16 kg; Height 5 sv ft. 4 in. (162.56 cm); Pain 5/10; 08:39 Body Mass Index 19.74 (52.16 kg, 162.56 cm) sv ED Course: 08:28 Patient arrived in ED. ds1 08:36 Arm band placed on. sv 08:38 Triage completed. sv Administered Medications: No medications were administered Outcome: 09:56 Patient left the ED. hb Signatures: Sandra Smith RN RN Ofelia Alcazar ds1 Sneha Leon RN RN hb Corrections: (The following items were deleted from the chart) 08:41 08:39 Pulse 75bpm; Resp 16bpm; Pulse Ox 100%; Temp 98.8F; 52.16 kg; Height 5 ft. 4 in.; sv BMI: 19.7; Pain 5/10; sv 08:41 08:39 Pulse 75bpm; Resp 16bpm; Pulse Ox 100%; Temp 98.8F; 52.16 kg; Height 5 ft. 4 in.; sv BMI: 19.7; Pain 5/10; sv
[2021-01-07 10:01] VITALS: BP 106/65; TEMP 98.8; O2SAT 100
== END 2021-01-07 09:56 | disposition left against medical advice (07) ==
LOC: ER 08:26
DX: Z02.9 Encounter for administrative examinations, unspecified (principal)
CPT/HCPCS: 99281